=== PATIENT | male | born 1995 | race Caucasian/White ===

== ENCOUNTER → 2019-06-23 | Outpatient (CLI) | payer OTHER ==
[2019-06-23 13:55] LABS: ALBUMIN 4.4 g/dL (3.5-5.0); EOS # 0.2 (0.04-0.40); EOS % 3.2 % (0.0-4.0); HEMATOCRIT 45.1 % (42.0-52.0); HEMOGLOBIN 15.2 g/dL (13.5-18.0); LYMPH# 2.8 (1.50-4.00); MEAN CELL VOLUME 87 fl (78-100); MEAN CORPUSCULAR HEMOGLOBIN 29 pg (27-31); MEAN CORPUSCULAR HGB CONC 34 g/dL (33-37); MEAN PLATELET VOLUME 10.6 fl (7.4-10.4); MONO # 0.5 (0.20-0.80); NEU # 3.7 (1.40-6.50); PLATELET COUNT 182 K/mm3 (130-400); POTASSIUM 4.4 mmol/L (3.5-5.1); RED BLOOD COUNT 5.21 M/mm3 (4.20-5.60); RED CELL DISTRIBUTION WIDTH 12.7 % (11.5-14.5); WHITE BLOOD COUNT 7.2 K/mm3 (4.8-10.8)
[2019-06-23 13:57] LABS: CALCIUM 9.3 mg/dL (8.3-10.5)
[2019-06-23 13:58] LABS: TOTAL PROTEIN 7.1 g/dL (6.4-8.3)
[2019-06-23 14:00] LABS: TOTAL BILIRUBIN 0.4 mg/dL (0.2-1.2)
== END ==
LOC: LAB 13:38
PROVIDERS: Nurse Practitioner
DX: K62.5 Hemorrhage of anus and rectum (principal)

== ENCOUNTER → 2020-08-19 | Outpatient (CLI) | payer OTHER | LOC: LAB 09:54 | DX: Z01.812 Encounter for preprocedural laboratory examination (principal); Z20.828 Contact with and (suspected) exposure to other viral communicable diseases ==

== ENCOUNTER → 2021-08-10 | Outpatient (CLI) | payer OTHER ==
[2021-08-10 14:41] LABS: BASO # 0.03 K/mm3 (0.02-0.10); EOS # 0.13 K/mm3 (0.04-0.40); EOS % 1.9 % (0.0-4.0); HEMOGLOBIN 16.2 g/dL (13.5-18.0); LYMPH# 2.54 K/mm3 (1.50-4.00); MEAN CELL VOLUME 85 fl (78-100); MEAN CORPUSCULAR HEMOGLOBIN 28 pg (27-31); MEAN CORPUSCULAR HGB CONC 33 g/dL (33-37); MEAN PLATELET VOLUME 10.2 fl (7.4-10.4); MONO # 0.39 K/mm3 (0.20-0.80); NEU # 3.76 K/mm3 (1.40-6.50); PLATELET COUNT 221 K/mm3 (130-400); RED BLOOD COUNT 5.79 M/mm3 (4.20-5.60); RED CELL DISTRIBUTION WIDTH 14.3 % (11.5-14.5); WHITE BLOOD COUNT 6.9 K/mm3 (4.8-10.8)
[2021-08-10 14:46] LABS: ALBUMIN 4.5 g/dL (3.5-5.0); POTASSIUM 4.4 mmol/L (3.5-5.1)
[2021-08-10 14:47] LABS: CALCIUM 10.2 mg/dL (8.3-10.5)
[2021-08-10 14:48] LABS: TOTAL PROTEIN 8.1 g/dL (6.4-8.3)
[2021-08-10 14:50] LABS: TOTAL BILIRUBIN 0.5 mg/dL (0.2-1.2)
[2021-08-11 04:08] LABS: TESTOSTERONE 1020 ng/dL (240-871)
== END ==
LOC: LAB 14:13
PROVIDERS: Internal Medicine
DX: Z00.00 Encounter for general adult medical examination without abnormal findings (principal)

== ENCOUNTER → 2021-11-09 | Outpatient (CLI) | payer OTHER | LOC: LAB 13:05 | DX: K90.9 Intestinal malabsorption, unspecified (principal) ==